=== PATIENT | female | born 1965 | race Two or more races ===

== ENCOUNTER → 2019-04-23 | Outpatient (CLI) | payer OTHER | END | disposition home or self-care (01) | LOC: MAMO-SONO 10:45 → SONOGRAMA 10:51 | DX: K80.10 Calculus of gallbladder with chronic cholecystitis without obstruction (principal) ==

== ENCOUNTER 2019-05-10 07:50 | Outpatient (CLI) | payer OTHER ==
[2019-05-10] MEDS ORDERED: FLONASE16 GM NASAL (10:50)
[2019-05-10] MEDS ORDERED: ENBREL50 MG/1 M1 SUBCUTANEO (10:50)
[2019-05-10] MEDS ORDERED: ZANTAC150 M3 PO (10:50)
[2019-05-10] MEDS ORDERED: ALEVE220 M1 PO (10:51)
== END 2019-05-10 08:02 | disposition home or self-care (01) ==
LOC: MRI 07:50
DX: K80.10 Calculus of gallbladder with chronic cholecystitis without obstruction (principal)

== ENCOUNTER 2019-05-17 09:28 | Outpatient (CLI) | payer OTHER ==
[~2019-05-17 09:28] MED LIST: ALEVE220 M1 PO; ENBREL50 MG/1 M1 SUBCUTANEO; FLONASE16 GM NASAL; ZANTAC150 M3 PO
== END 2019-05-17 09:40 | disposition home or self-care (01) ==
LOC: MRI 09:28
DX: K80.10 Calculus of gallbladder with chronic cholecystitis without obstruction (principal)
CPT/HCPCS: 74181

== ENCOUNTER 2019-05-19 05:05 | Day surgery (SDC) | payer OTHER | END 2019-05-19 13:35 | disposition home or self-care (01) | LOC: CIR.AMB 05:05 | DX: K80.10 Calculus of gallbladder with chronic cholecystitis without obstruction (principal) ==